=== PATIENT | male | born 1960 | race Caucasian/White ===

== ENCOUNTER 2019-12-24 11:51 | Inpatient (IN) | payer OTHER ==
[~2019-12-24] VITALS: Ht 177.8 cm; Wt 99.6 kg
[2019-12-24 11:58] VITALS: BP 159/82
[2019-12-24] MEDS ORDERED: PLAVIX 75 MG TA75 MG PO (12:06)
[2019-12-24 12:45] LABS: HEMATOCRIT 44.1 % (42.0-52.0); HEMOGLOBIN 15.3 gm/dL (14.0-18.0); MCH 31.9 pg (26.0-34.0); MCHC 34.8 g/dL (28.0-37.0); MCV 91.6 fL (80.0-100.0); MPV 8.5 fl. (7.2-11.1); NUCLEATED RBCS 0 /100WBC; PLATELET COUNT* 190 thou/uL (150-400); RBC 4.81 mil/uL (4.50-6.00); RDW-CV 12.5 % (10.5-14.5); WBC 10.8 thou/uL (4.0-11.0)
[2019-12-24 13:04] LABS: CALCIUM 8.5 mg/dL (8.5-10.1); CREATININE 1.7 mg/dL (0.6-1.3); POTASSIUM 3.9 mmol/L (3.5-5.1)
[2019-12-24 13:08] LABS: APTT 29.4 Seconds (25.0-31.3); INR 1.1; PROTIME 11.4 Seconds (9.20-11.50)
[2019-12-24 13:08] LABS: ALBUMIN 3.3 g/dL (3.4-5.0); TOTAL BILIRUBIN 1.2 mg/dL (<0.1-1.0)
[2019-12-24 13:14] LABS: ABSOLUTE LYMPHOCYTES 0.8 thou/uL (0.8-5.3); ABSOLUTE MONOCYTES 0.4 thou/uL (0.0-1.2); ABSOLUTE NEUTROPHILS 9.6 thou/uL (1.6-8.1); PLATELET ESTIMATE ADEQUATE
[2019-12-24 13:20] LABS: INFLUENZA A ANTIGEN Negative (Negative); INFLUENZA B ANTIGEN Negative (Negative)
[2019-12-24 15:09] VITALS: BP 163/89
--- NOTE | 2019-12-24 15:55 | EKG ---
[place] [address] ELECTROCARDIOGRAM REPORT Name: PHILIP SAAB Room: [address] ADM IN [facility]#: [id number] Admission: 12/24/19 Attend Phys: Blas Rodriguez, Discharge: Date of : 58 Date of Service: 12/24/19 1244 Report #: [id number] THIS REPORT FOR: //name// [facility] ED Test Date: 2019-12-24 Test Time: 12:44:44 Pat Name: PHILIP SAAB Department: Room: [facility] Gender: M Rrts: : 1960 Requested By: Magalie Reid Order Number: [id number] MD: Edgar Morris Measurements Intervals [place] Rate: 105 P: 46 WV: 196 QRS: 2 QRSD: 109 T: 76 QT: 309 QTc: 409 Interpretive Statements Sinus tachycardia Probable left atrial enlargement Low voltage, extremity leads Borderline ST elevation, anterior leads No previous ECG available for comparison Electronically Signed On 12-24-2019 15:54:36 CDT by Edgar Morris [email or web address] <ELECTRONICALLY SIGNED> By: Edgar Morris MD, [facility] 12/24/19 1554 1244 1244 Edgar Morris MD, [facility] /EPI
[2019-12-24 16:00] VITALS: BP 106/66
[2019-12-24 20:00] VITALS: BP 111/68
[2019-12-25 04:25] VITALS: BP 109/62; BP 121/74
[2019-12-25 04:40] LABS: HEMATOCRIT 38.8 % (42.0-52.0); HEMOGLOBIN 13.6 gm/dL (14.0-18.0); MCH 32.1 pg (26.0-34.0); MCHC 35.1 g/dL (28.0-37.0); MCV 91.5 fL (80.0-100.0); MPV 8.7 fl. (7.2-11.1); RBC 4.24 mil/uL (4.50-6.00); RDW-CV 12.6 % (10.5-14.5); WBC 7.4 thou/uL (4.0-11.0)
--- NOTE | 2019-12-25 04:42 | NUR ---
ASSUMED PATIENT CARE AT 1900. PATIENT ALERT AND ORIENTED TIMES FOUR. DRESSING TO LEFT FOOT C/D/I. MINOR COMPLAINTS OF PAIN, CONTROLLED WITH PO MEDICATIONS. UP INDEPENDENTLY IN ROOM. 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
[2019-12-25 05:00] LABS: CALCIUM 7.3 mg/dL (8.5-10.1); CREATININE 1.4 mg/dL (0.6-1.3); MAGNESIUM 1.4 mg/dL (1.8-2.4); POTASSIUM 3.7 mmol/L (3.5-5.1)
--- NOTE | 2019-12-25 10:29 | NUR ---
Nutrition: Pt admitted with nonhealing foot wound. Consult for DM, wound healing. RD ordered Mil for wound healing. BG 135, alb 3.3. CHO count diet. Wt: 220#. Debridement today. Physician indicated moderate PCM - defer. GOALS: tight BG control, good protein and supplement intake. Mild to low risk.
[2019-12-25 12:00] VITALS: BP 132/39; BP 157/90
--- NOTE | 2019-12-25 13:06 | CON ---
[address] [address] CONSULTATION Name: KATIANAPHILIP Apolinar Room: [address] IN M.R.#: [id number] Admission: 12/24/19 Attend Phys: Blas Rodriguez MD Discharge: Date of : 58 Report #: [id number] THIS REPORT FOR: //name// cc: SINA Mandujano family physician/PCP SINA Mandujano family physician/PCP ~ THIS REPORT FOR: //name// CC: SINA physician/PCP Blas Rodriguez DATE OF SERVICE: 12/25/2019 INFECTIOUS DISEASE CONSULTATION ATTENDING PHYSICIAN: Blas Rodriguez M.D. REASON FOR EVALUATION: Gram-positive septicemia in the setting of a diabetic foot ulcer, suspected chronic osteomyelitis. HISTORY OF PRESENT ILLNESS: Chart reviewed, patient examined. This is a 59-year-old gentleman with known diabetes mellitus; he states he was diagnosed roughly 2-3 years ago. He denies significant peripheral neuropathy, although he has had previous ulceration involving his left fifth toe required a transmetatarsal amputation. He presents today with ongoing issues; had experienced some chills, although he has been afebrile here; progressive fatigue. He had some emesis on the day of admission. Evaluation is undertaken including blood cultures 2/2 positive with gram-positive cocci. Initial lactic acid was elevated at 2.3, repeat was 1.3. Creatinine slightly elevated at 1.7. Influenza antigen was negative. Arterial Doppler biphasic flow to the left leg. He is scheduled to undergo operative procedure tomorrow. MRI raised a question of some early bony changes involving the first metatarsal. He has no discrete fluid collections. He was empirically started on therapy with cefepime and vancomycin. He is lucid and denies any significant pulmonary or gastrointestinal-related complaints. ALLERGIES: None known. MEDICATIONS: Include vancomycin, insulin lispro, morphine, p.r.n. analgesics, antiemetics, and cefepime. PAST MEDICAL HISTORY: As described above, diabetes mellitus and previous left fifth toe amputation. SOCIAL HISTORY: Nonsmoker, no ethanol, no illicit drug use. FAMILY HISTORY: [place] [address] CONSULTATION Name: PHILIP SAAB Apolinar Room: [address]#: [id number] Admission: 12/24/19 Attend Phys: Blas Rodriguez MD Discharge: Date of : 58 Report #: [id number] REVIEW OF SYSTEMS: As above, as noted in 10 points, otherwise, unremarkable. PHYSICAL EXAMINATION: GENERAL: He is alert and cooperative. He is having some mild chills at this point. He is lucid, [id number]-mu-[id number] distress. VITAL SIGNS: Temperature 98.2, pulse 91, respirations 18, blood pressure 109/62. SKIN: Warm, dry, no rashes. HEENT: Otherwise unremarkable. Normocephalic. Extraocular muscles intact. NECK: Supple. LUNGS: Generally clear to auscultation. HEART: Regular. I do not appreciate any murmur. ABDOMEN: Soft, obese, nontender. There is a dressing over the distal aspect of the left lower extremity that is not disrupted. LABORATORY AND X-RAY DATA: Blood cultures 2 out 2 with gram-positive cocci, awaiting identification. MRI of the foot as noted above. Electrolytes: Sodium 136, potassium 3.7, chloride 102, bicarbonate is 23, anion gap of 11, BUN and creatinine 30 and 1.4. CBC: White count of 7.4, H and H 13.6 and 38.8, platelets of 169. Influenza antigen was negative. ASSESSMENT AND PLAN: Gram-positive septicemia in a patient with what appears to be a potentially deep infection involving his foot in the setting of diabetes mellitus. We would expect this to be a true positive. We will treat with therapy at this point. Noted plan is for operative intervention. I think that is reasonable given the possibility of early intervention may stem any more progression of the disease. He is certainly at risk. Continue to monitor expectantly. Add incentive spirometry. <ELECTRONICALLY SIGNED> By: Kelby Romero MD 12/25/19 1306 1136 [id number] Romero MD /nt
--- NOTE | 2019-12-25 16:29 | NUR ---
Pt is A&O. 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 Per nurse, anticipate dc early next week, surgery tomorrow. Pt is independent. Pt has a walker. Hx of HH. No hx of SNF. Home at dc, following.
--- NOTE | 2019-12-25 18:00 | NUR ---
ASSUMED PT CARE AT 0700, PT A& O X4, VSS, RA, REMAINS MED SURGE STATUS, FULL ASSESSMENT CHARTED. DR BOWERS GAVE ORDERS FOR SURGERY TO LEFT FOOT TOMORROW, PT EDUCATED ON NPO STATUS POST MIDNIGHT. HOURLY ROUNDING COMPLETED.
[2019-12-25 20:00] VITALS: BP 138/84
[2019-12-26 05:00] VITALS: BP 131/73
--- NOTE | 2019-12-26 06:18 | NUR ---
ASSUMED CARE OF PT AFTER REPORT AT 1930. PT A&OX4. VSS. PHYSICAL ASSESSMENT COMPLETED AND CHARTED. PT ON RA. PT ON MEDSURG STATUS. PT UPSTANDBY TO RESTROOM. MAGNESIUM 1.4. ELECTROLYTE PROTOCOL IN PLACE. PT WITH DIABETIC WOUND ON LEFT FOOT. APPLIED WITH BETADINE, COVERED WITH ABD, WRAPPED WITH KERLEX. CALL LIGHT WITHIN REACH.
[2019-12-26 09:50] LABS: HEMATOCRIT 37.6 % (42.0-52.0); HEMOGLOBIN 13.2 gm/dL (14.0-18.0); MCH 31.9 pg (26.0-34.0); MCHC 35.2 g/dL (28.0-37.0); MCV 90.6 fL (80.0-100.0); MPV 8.8 fl. (7.2-11.1); RBC 4.15 mil/uL (4.50-6.00); RDW-CV 12.5 % (10.5-14.5); WBC 6.7 thou/uL (4.0-11.0)
[2019-12-26 09:57] LABS: CALCIUM 7.2 mg/dL (8.5-10.1); CREATININE 1.2 mg/dL (0.6-1.3); MAGNESIUM 1.9 mg/dL (1.8-2.4); POTASSIUM 3.3 mmol/L (3.5-5.1)
[2019-12-26 10:08] LABS: URINE BILIRUBIN NEGATIVE (Negative); URINE BLOOD 1+ (Negative); URINE CLARITY CLEAR; URINE COLOR YELLOW; URINE GLUCOSE-RANDOM NEGATIVE (Negative); URINE KETONES 1+ (Negative); URINE LEUKOCYTES-REFLEX NEGATIVE (Negative); URINE NITRITE-REFLEX NEGATIVE (Negative); URINE PROTEIN 2+ (Negative); URINE SPECIFIC GRAVITY 1.025 (1.005-1.030); URINE UROBILINOGEN 0.2 E.U./dl (0.2-1.0)
[2019-12-26 10:15] LABS: AMP/METHAMP Negative (Negative); BARBITURATES Negative (Negative); BENZODIAZEPINES Negative (Negative); COCAINE Negative (Negative); METHADONE Negative (Negative); OPIATES Negative (Negative); PCP Negative (Negative); THC Negative (Negative)
[2019-12-26 10:33] LABS: BACTERIA-REFLEX 1-9 Few /HPF (None Seen); CASTS None Seen /LPF (None Seen); CRYSTALS None Seen /LPF (None Seen); MUCUS None Seen strn/LPF (None Seen); SQUAMOUS 4-10 Moderate /LPF (0-3); URINE RBC 3-10 Few /HPF (0-2); URINE WBC-REFLEX 0-5 Rare /HPF (0-5)
[2019-12-26 16:13] VITALS: BP 117/64
--- NOTE | 2019-12-26 18:37 | NUR ---
ASSUMED PT CARE AT 0700, PT A&O X4, VSS, RA, REMAINS MED SURG STATUS. PT HAD SURGICAL DEBRIDEMENT TO LEFT FOOT WOUND, DR BOWERS WRAPPED POST SURGERY, PT DENIES PAIN. EDUCATED ON NON WEIGHT BEARING STATUS, DIET ORDER IN PLACE, SMALL BM THIS SHIFT POST SURGERY, HOURLY ROUNDING COMPLETED.
[2019-12-26 19:40] VITALS: BP 128/78
[2019-12-27] VITALS: BP 112/52
--- NOTE | 2019-12-27 05:16 | NUR ---
PT CARE ASSUMED AT 1930. SAT MAINTAINED IN RA. ALERT AND ORIENTED X4. DENIES PAIN AND SOB. CALL LIGHT WITHIN REACH AND BED IN LOW POSITION. HOURLY ROUNDING DONE FOR PT SAFETY.
[2019-12-27 08:00] VITALS: BP 134/84
[2019-12-27 12:28] VITALS: BP 125/75
[2019-12-27 14:20] LABS: HEMATOCRIT 38.9 % (42.0-52.0); HEMOGLOBIN 13.3 gm/dL (14.0-18.0); MCH 31.4 pg (26.0-34.0); MCHC 34.2 g/dL (28.0-37.0); MCV 91.6 fL (80.0-100.0); MPV 8.5 fl. (7.2-11.1); RBC 4.24 mil/uL (4.50-6.00); WBC 4.9 thou/uL (4.0-11.0)
[2019-12-27 14:28] LABS: CALCIUM 7.9 mg/dL (8.5-10.1); CREATININE 1.1 mg/dL (0.6-1.3); MAGNESIUM 1.9 mg/dL (1.8-2.4); POTASSIUM 3.5 mmol/L (3.5-5.1)
--- NOTE | 2019-12-27 15:50 | OP ---
[facility] [address] [place] [address] OPERATIVE REPORT Name: PHILIP SAAB Room: [address] IN M.R.#: [id number] Admission: 12/24/19 Attend Phys: Blas Rodriguez MD Discharge: Date of : 58 Report #: [id number] THIS REPORT FOR: //name// cc: SINA Mandujano family physician/PCP SINA - Nazia family physician/PCP ~ THIS REPORT FOR: //name// CC: SINA physician/PCP Blas Rodriguez DATE OF SERVICE: 12/26/2019 PREOPERATIVE DIAGNOSES: 1. Diabetic ulcerations, left foot with necrosis. 2. Cellulitis, left foot. POSTOPERATIVE DIAGNOSES: 1. Diabetic ulcerations, left foot with necrosis. 2. Cellulitis, left foot. SURGEON: Latricia Barbosa DPM COOLER OPERATOR: None. ANESTHESIA: MAC with local. PROCEDURES PERFORMED: 1. Debridement and irrigation of plantar left foot ulceration to level of deep fascia, left foot. 2. Debridement and irrigation of lateral left foot and toe ulceration to the level of subcutaneous fat. PATHOLOGY: 1. First sample was sent as ulceration, plantar left foot. 2. Ulceration, left foot was sent for culture. HEMOSTASIS: Via compression and electrocautery. MATERIALS USED: None. INJECTABLES: 10 mL of a 1:1 mix of 0.5% bupivacaine plain and 1% lidocaine plain. COMPLICATIONS: None. PROCEDURE IN DETAIL: The patient was brought into the operating room, placed on [address] [address] OPERATIVE REPORT Name: KATIANAPHILIP Apolinar Room: [address] IN M.R.#: [id number] Admission: 12/24/19 Attend Phys: Blas Rodriguez MD Discharge: Date of : 58 Report #: [id number] the operating room table in the supine position. The patient was then placed under MAC anesthesia and at this time, local timeout was then performed at this time with all personnel in the room were in agreement to procedure, side and the patient. At this time, a local infiltrative block was then placed about the patient's left foot utilizing 10 mL of 1:1 mixture of 0.5% bupivacaine plain and 1% lidocaine plain. The patient's left foot was then scrubbed, prepped and draped in the usual aseptic manner. Attention was then directed to the plantar aspect of the patient's left foot where a large ulceration with overlying necrosis was noted along the entire plantar aspect of the metatarsal heads of the patient's forefoot. Ulceration pre-debridement was noted to measure 8.5 cm x 4.3 cm x 0.1 cm. This ulceration was largely necrotic center with a mixture of fibrosis and small granulation tissue along the periphery. Site was then debrided utilizing a #15 blade and the wound was excisionally debrided down to the level of the deep fascia on the plantar aspect of the patient's foot. This ulceration was then collected off the operating table and sent for gross pathology at this time. Upon debridement, there was no deep sinus tract noted. No exposed bone, no malodor noted and no active pustular drainage. The underlying soft tissue was noted to be predominantly granular and the plantar wound was noted to be bleeding and be well vascularized. The deep fascia was exposed at this time and with underlying muscle was evaluated, the first metatarsal head was significantly probed and evaluated at this time due to MRI showing possible very early signs of osteomyelitis to the head of the first metatarsal. There was no sinus tract leading to this area or signs of further deep infection or necrosis at this time. Post-debridement measurements of the plantar ulcer are as follows: 9 cm x 4.5 cm x 0.4 cm. Next, the remaining 2 ulcerations were then evaluated at this time with the locations being at the lateral fifth metatarsal base of the left foot and the lateral aspect of the left fourth toe. Both wounds were noted to be fibrotic with a necrotic center at this time. An overlying blister was noted to both lesions. Pre-debridement measurements of the lateral ulceration were noted to be 2.4 cm x 1.2 cm x 0.1 cm and to the left fourth toe noted to be just shy of 1 cm in diameter. Both ulcerations were debrided in a similar method as the previous ulceration, plantar aspect of the left foot and post-debridement measurements were taken down to the level of subcutaneous tissue with the lateral ulceration measuring post-debridement 2.6 cm x 1.5 cm x 0.2 cm and the fourth toe being 1 cm x 1 cm x 0.1 cm. With both these lesions again, there was no deep sinus tract, abscess, malodor noted and no exposed bone. During this time, compression was held to the large plantar ulceration in order to control bleeding and sites were bovied as necessary in order to control and reduce bleeding at this time. Once this was controlled to all debridement sites, the patient's left foot was then copiously irrigated with bacitracin, polymyxin mixed with saline using approximately 1 liter of fluid. The remainder of the left foot was then again cleansed and dressed with Aquacel Ag, 4 x 4 gauze, two [address] [address] OPERATIVE REPORT Name: PHILIP SAAB Room: [address] IN [facility]#: [id number] Admission: 12/24/19 Attend Phys: Blas Rodriguez MD Discharge: Date of : 58 Report #: [id number] ABD pads, Kerlix and a loosely compressive Micheal bandage. At this point to note the bleeding was well controlled prior to dressings being applied. Neurovascular status intact to the remainder of the foot throughout the procedure. The patient tolerated the procedure and anesthesia well and was transported from the operating room to the recovery room with vital signs stable and neurovascular status intact to left lower extremity. DISPOSITION: The patient is to be nonweightbearing to the left foot. Orders were placed for postoperative shoe and crutches at this time. A dressing is to remain intact for 24 hours and wound to be reevaluated at first dressing change. <ELECTRONICALLY SIGNED> By: Latricia Barbosa DPM 12/27/19 1550 0012 [id number] Barbosa DPM /julissa
[2019-12-27 19:40] VITALS: BP 120/69
[2019-12-28 04:00] VITALS: BP 125/59
--- NOTE | 2019-12-28 04:48 | NUR ---
PT CARE ASSUMED AT 1930. SAT MAINTAINED IN RA. ALERT AND ORIENTED X4. DENIES PAIN AND SOB. CALL LIGHT WITHIN REACH AND BED IN LOW POSITION. HOURLY ROUNDING FOR PT SAFETY.
[2019-12-28 08:00] VITALS: BP 137/72
[2019-12-28 12:28] VITALS: BP 117/58
[2019-12-28 19:50] VITALS: BP 139/74
--- NOTE | 2019-12-28 20:47 | NUR ---
PT DRESSING CHANGED, PICTURES OF WOUNDS IN CHART. NO COMPLAINTS T/O SHIFT.
[2019-12-29] VITALS: BP 134/64
[2019-12-29 04:13] LABS: CALCIUM 8.1 mg/dL (8.5-10.1); CREATININE 1.1 mg/dL (0.6-1.3); MAGNESIUM 1.7 mg/dL (1.8-2.4); POTASSIUM 3.7 mmol/L (3.5-5.1)
--- NOTE | 2019-12-29 05:51 | NUR ---
PT CARE ASSUMED AT 1930. SAT MAINTAINED IN RA. ALERT AND ORIENTED X4. DENIES PAIN AND SOB. CALL LIGHT WITHIN REACH AND BED IN LOW POSITION. DRESSING C/D/I. HOURLY ROUNDING DONE FOR PT SAFETY.
[2019-12-29 08:21] VITALS: BP 113/61
--- NOTE | 2019-12-29 12:33 | NUR ---
Plan dc to home in a few days, plan for brother to drive down from [place] and pick him up and transport him back to [place]. CM messaged ID to determine if Pt will need zyvox at vt, awaiting decision. Following.
[2019-12-29 13:12] VITALS: BP 137/76
--- NOTE | 2019-12-29 14:07 | PATH ---
[facility] [address] [place] [address] PATHOLOGY RPT PROCEDURE Name: LARRY SAAB Room: [address] IN ..#: [id number] Admission: 12/24/19 Date of : 58 Discharge: Report #: [id number] Path Case #: [id number] [facility] Accession Number: [id number] . 01 Material submitted: . foot - ULCERATION PLANTAR LEFT FOOT. Modifiers: left, plantar surface . 01 Clinical history: . Left foot wound. . 02 Diagnosis: Ulceration plantar left foot: - Benign skin with non-specific ulceration and necrosis. (DAVID/db; 12/29/2019) LBQ 12/29/2019 1218 Local . 02 Electronically signed: . Mulugeta Garrido MD, Pathologist NPI- [id number] . 01 Gross description: . Received in formalin labeled "Larry Saab, ulceration plantar left foot" is a portion of alvarado-brown necrotic skin measuring 7.3 x 4.5 x 0.5 cm. One aspect is smooth and the opposite aspect is roughened. Client Technical Specialist tissue is submitted in A1. [place] [place] [facility] 12/28/2019 1119 Local . 02 Pathologist provided ICD-10: I96, L97.529 . 02 CPT . 803592 Specimen Comment: A courtesy copy of this report has been sent to [phone] Specimen Comment: [phone] Specimen Comment: Report sent to / DR MAYES Performed at: [address], [place] [id number] MD Gerardo Bedolla MD Phone: [phone] Performed at: 02 [facility] [address], [place], [place] [address] MD Mulugeta Garrido MD Phone: [phone]
--- NOTE | 2019-12-29 16:59 | NUR ---
PT A&Ox4. VITALS STABLE. UP WITH STB USING WALKER, NWB ON LEFT FOOT. DENIED PAIN. TOLERATING DIET. DRESSING CHANGED BY PODIATRY THIS MORNING. CHANGED TO PO ABX. CALL LIGHT WITHIN REACH. WILL CONTINUE TO MONITOR.
[2019-12-29 18:37] VITALS: BP 139/67
[2019-12-29 20:00] VITALS: BP 137/66
[2019-12-30 00:22] VITALS: BP 141/83
--- NOTE | 2019-12-30 02:38 | NUR ---
PT ALERT ORIENTED. PT HAVING MANY COMPLAINTS DURING MEDICATION PASS. PT REQUESTED NOT TO NE WOKE UP OR HAVE LABS. LAB DRAW TIME CHGD TO 0600. MED/SURG STATUS. NO VS AT 0400. HS BLOOD GLUCOSE 210 AND TX WITH INSULIN. WILL CONTINUE TO MONITOR.
--- NOTE | 2019-12-30 07:15 | NUR ---
CHNAGE OF SHIFT, BEDSIDE REPORT GIVEN PATIENT SEEN AT BEDSIDE, IN BED RESTING ASSUMED PATIENT CARE
[2019-12-30 08:00] VITALS: BP 132/71
[2019-12-30] MEDS ORDERED: CIPRO500 MG PO (09:02)
[2019-12-30] MEDS ORDERED: LINEZOLID600 MG PO (09:02)
--- NOTE | 2019-12-30 11:24 | NUR ---
Pt discharging to home today. CM spoke with Pt, informed of Good Rx coupon that would make his rx for Zyvox $157.62, Pt states that he can afford it. Pt plans to excelsior picker his med[place] here in [place] to [place]. BRENDA provided Pt with 2 coupons. Pt's brother to excelsior picker and transport, Pt plans to stay with his sister for a while in [place], then plans to head back home to [place].
[2019-12-30 13:52] VITALS: BP 132/71
--- NOTE | 2019-12-30 16:15 | NUR ---
L FOOT DRSG CHANGE DONE EARLIER THIS DAY DISCHRGE WOUND PICTURE REFUSED BY PATIENT
--- NOTE | 2019-12-30 16:54 | NUR ---
PATIENT DISCHARGED TO HOME DISCHARGE INSTRUCTIONS GIVEN, ACKNOWLEDGED, AND SIGNED COPIES GIVEN IV REMOVED PERSONAL BELONGIGNS RETURNED PATIENT ASSISTED OUT VIA WC TO WAITING CAR
== END 2019-12-30 16:30 | disposition home or self-care (01) | DRG 853 ==
LOC: M.ERS 11:51 → M.2W 13:16 → M.TBA-ER 13:16 → M.2W 15:25
PROVIDERS: Nurse Practitioner Family; Podiatrist; ADMIT Internal Medicine
PROC: 0JBR0ZZ Excision of Left Foot Subcutaneous Tissue and Fascia, Open Approach (ICD-10-PCS; principal; 2019-12-26)
DX: A41.01 Sepsis due to Methicillin susceptible Staphylococcus aureus (principal); N17.0 Acute kidney failure with tubular necrosis; L03.116 Cellulitis of left lower limb; E44.0 Moderate protein-calorie malnutrition; M86.8X7 Other osteomyelitis, ankle and foot; E11.65 Type 2 diabetes mellitus with hyperglycemia; E11.621 Type 2 diabetes mellitus with foot ulcer; N18.2 Chronic kidney disease, stage 2 (mild); E11.22 Type 2 diabetes mellitus with diabetic chronic kidney disease; E11.40 Type 2 diabetes mellitus with diabetic neuropathy, unspecified; Z68.31 Body mass index [BMI] 31.0-31.9, adult; E11.69 Type 2 diabetes mellitus with other specified complication; Z89.422 Acquired absence of other left toe(s)